=== PATIENT | male | born 1980 | race Caucasian/White ===

== ENCOUNTER 2018-11-26 11:54 | Emergency (ER) | payer BC ==
[~2018-11-26] VITALS: Ht 188 cm; Wt 81.6 kg
[2018-11-26 12:03] VITALS: BP 134/79
[2018-11-26] MEDS ORDERED: NKM (12:08)
--- NOTE | 2018-11-26 12:13 | NUR ---
ED Nurse Note: Pt walked in due to chemical exposure without applying mask x 4-5 hours 2 days ago. Pt used muriatic acid. Pt c/o headache, sorethroat and weakness. AAO x4 and ambulatory with no respiratory distress. Denies vomiting.
[2018-11-26] MEDS ORDERED: Ipratropium 0.02% Inh Soln 2.5ml UD HHN ONE (12:30)
[2018-11-26] MEDS ORDERED: Albuterol ud Inhalation HHN ONE (12:30)
--- NOTE | 2018-11-26 12:30 | NUR ---
ED Nurse Note: Called RT for breathing treatment.
[2018-11-26] MEDS ORDERED: ALBUTEROL SULF8.5 GM INH (12:48)
--- NOTE | 2018-11-26 12:48 | Emergency Room Report ---
History of Present Illness General Chief Complaint: Chemical Exposure Source: Patient Present Illness HPI 38-year-old male history of 20 pack years presents with sore throat, chest congestion x2 days, patient 2 days ago was exposed to Muriatic Acid Klean Strip 5 hours, and an open area cleaning the concrete, denies any chest pain, he feels a little congested has a sore throat, no aggravating or alleviating factors, and Tums have been constant, denies any shortness of breath dyspnea on exertion, no nausea no vomiting, he presents for evaluation Allergies: Coded Allergies: No Known Allergies (Unverified , 11/26/18) Patient History Past Medical History: see triage record Reviewed Nursing Documentation: PMH: Agreed; PSxH: Agreed Nursing Documentation-PMH Past Medical History: No Stated History Review of Systems All Other Systems: negative except mentioned in HPI Physical Exam Vital Signs Date Time Temp Pulse Resp B/P (MAP) Pulse Ox O2 Delivery O2 Flow Rate FiO2 11/26/18 12:03 98.6 88 16 134/79 (97) 95 Room Air Sp02 EP Interpretation: reviewed, normal General Appearance: well appearing, no apparent distress, alert Head: normocephalic, atraumatic Eyes: bilateral eye PERRL, bilateral eye EOMI ENT: uvula midline, moist mucus membranes Neck: supple, thyroid normal, supple/symm/no masses Respiratory: lungs clear, no respiratory distress, no retraction, no accessory muscle use Cardiovascular #1: normal peripheral pulses, regular rate, rhythm, no edema, no gallop, no murmur Gastrointestinal: non tender, soft, no guarding, no rebound Musculoskeletal: normal inspection Neurologic: alert, oriented x3 Psychiatric: mood/affect normal Skin: no rash, warm/dry Medical Decision Making Diagnostic Impression: Primary Impression: Chemical exposure ER Course Patient with a mild chemical exposure spoke with poison control [place] at 12: 37 PM, no acute interventions, supportive care Will provide patient with [facility] here, chest x-ray is negative disposition home with return precautions Chest X-Ray Diagnostic Results Chest X-Ray Diagnostic Results : Chest X-Ray Ordered: Yes # of Views/Limited/Complete: 1 View Indication: Shortness of Breath EP Interpretation: Yes Interpretation: no consolidation, no effusion, no pneumothorax, no acute cardiopulmonary disease Impression: No acute disease Electronically Signed by: Brian Mendoza Last Vital Signs Date Time Temp Pulse Resp B/P (MAP) Pulse Ox O2 Delivery O2 Flow Rate FiO2 11/26/18 12:12 76 20 Room Air 11/26/18 12:03 98.6 134/79 (97) 95 Disposition: HOME, SELF-CARE Condition: Stable Scripts Albuterol Sulfate* (ALBUTEROL SULFATE MDI*) 8.5 Gm Hfa.aer.ad 2 PUFF INH Q4H PRN for cough/wheezing, #1 EA 0 Refills Prov: Brian Mendoza MD 11/26/18 Referrals: [facility] Patient Instructions: Chemical Inhalation Injury Additional Instructions: The patient was provided with discharge instructions, notified to follow-up with a primary care doctor and or specialist in the next 24-48 hours, and to return to the ED if they have worsening of their symptoms. Please note that this report is being documented using DRAGON technology. This can lead to erroneous entry secondary to incorrect interpretation by the dictating instrument. Brian Mendoza MD Nov 26, 2018 12:48
[2018-11-26 12:55] VITALS: BP 128/80
--- NOTE | 2018-11-26 12:55 | NUR ---
ER DISCHARGE NOTE: Patient is cleared to be discharged per ERMD, pt is aox4, on room air, with stable vital signs. pt was given dc instructions, pt was able to verbalize understanding, pt id band removed. pt is able to ambulate with steady gait. pt took all belongings.
== END 2018-11-26 12:55 | disposition home or self-care (01) ==
LOC: EMR 12:35
DX: R09.89 Other specified symptoms and signs involving the circulatory and respiratory systems (principal); Z77.098 Contact with and (suspected) exposure to other hazardous, chiefly nonmedicinal, chemicals
CPT/HCPCS: 71045; 94640; 99284

== ENCOUNTER 2020-03-25 20:45 | Emergency (ER) | payer BC ==
[~2020-03-25] VITALS: Ht 188 cm; Wt 83.9 kg
[~2020-03-25 20:45] MED LIST: ALBUTEROL SULF8.5 GM INH; NKM
--- NOTE | 2020-03-25 21:20 | NUR ---
ED Nurse Note: Pt walked in from home, he is ambulatory with a steady gait. pt is axox4. States that he fell last night skateboarding on his left wrist. He has cap refill less than 3 seconds. He has shooting pain. He has limited movement of his left thumb. There is notable swelling but no discoloration.
[2020-03-25 21:24] VITALS: BP 134/77
--- NOTE | 2020-03-25 21:59 | Diagnostic Imaging Report ---
EXAM: XR Left Hand Complete, 3 or More Views CLINICAL HISTORY: PAIN TECHNIQUE: Frontal, lateral and oblique views of the left hand. COMPARISON: No relevant prior studies available. FINDINGS: Bones/joints: Linear lucency only visualized in the lateral view within the volar aspect of the base of the third middle phalanx could represent a small avulsion fracture. The fracture fragment does not appear to extend into the proximal interphalangeal joint. No dislocation. Soft tissues: Unremarkable. No radiopaque foreign body. IMPRESSION: Linear lucency within volar base of the third middle phalanx could represent a small avulsion fracture. The fracture fragment does not appear to extend into the proximal interphalangeal joint.
[2020-03-25] MEDS ORDERED: IBUPROFEN600 M1 ORAL (22:08)
[2020-03-25] MEDS ORDERED: NORCO 5-325 TA1 EAC1 ORAL (22:08)
--- NOTE | 2020-03-25 22:13 | Emergency Room Report ---
History of Present Illness General Chief Complaint: Upper Extremity Injury Source: Patient Present Illness HPI Disclaimer: Please note that this report is being documented using [employer] technology. This can lead to erroneous entry secondary to incorrect interpretation by the dictating instrument. HPI: 40-year-old male presents with left thumb pain. Last night he was skateboarding and fell landing on his left thumb. Complains of 10 out of 10 pain in left thumb worse with movement. He denies any other injuries. No head or neck trauma. He denies any medical history. Allergies: Coded Allergies: No Known Allergies (Unverified , 11/26/18) COVID-19 Screening Contact w/high risk pt: No Experienced COVID-19 symptoms?: No COVID-19 Testing performed PROVIDER RELATIONS REPRESENTATIVE: No COVID-19 Screening: Negative COVID-19 COVID-19 Testing Source: [facility] Patient History Reviewed Nursing Documentation: PMH: Agreed; PSxH: Agreed Review of Systems All Other Systems: negative except mentioned in HPI Physical Exam Vital Signs Date Time Temp Pulse Resp B/P (MAP) Pulse Ox O2 Delivery O2 Flow Rate FiO2 03/25/20 21:07 98.1 85 20 135/78 (97) 98 Room Air Sp02 EP Interpretation: reviewed, normal General Appearance: well appearing, no apparent distress Head: normocephalic, atraumatic Eyes: bilateral eye PERRL, bilateral eye EOMI ENT: hearing grossly normal, moist mucus membranes Neck: full range of motion, supple Respiratory: lungs clear, normal breath sounds, no rhonchi, no respiratory distress, no retraction, no wheezing Cardiovascular #1: normal peripheral pulses, regular rate, rhythm, no murmur Gastrointestinal: non tender, soft, non-distended, no guarding Musculoskeletal: other - Left thumb tender to palpation along proximal phalanx, no snuffbox tenderness, decreased flexion of the thumb, sensation intact. Neurologic: alert, oriented x3, no focal defects Skin: normal color, warm/dry Medical Decision Making Diagnostic Impression: Primary Impression: Left thumb sprain ER Course Differential diagnosis included but not limited to sprain, fracture, contusion, tendon injury to name a few exam patient was tender to palpation with mild decreased range of motion but no obvious deformity. X-ray completed and showed no acute fracture of the thumb or dislocation. Patient was placed in a thumb spica splint. Was given pain control. Will be discharged with pain control, copies of his imaging and close follow-up with his primary care doctor and orthopedics. Other X-Ray Diagnostic Results Other X-Ray Diagnostic Results : X-Ray ordered: Left hand # of Views/Limited Vs Complete: 3 View Indication: Pain Interpretation: no dislocation, no fractures Impression: No acute disease Electronically Signed by: Uday Cruz MD Last Vital Signs Date Time Temp Pulse Resp B/P (MAP) Pulse Ox O2 Delivery O2 Flow Rate FiO2 03/25/20 21:24 98.2 89 20 134/77 98 Room Air Disposition: HOME, SELF-CARE Condition: Stable Scripts Hydrocodone Bit/Acetaminophen 5-325* (NORCO 5-325 TABLET*) 1 Each Tablet 1 TAB ORAL Q6H PRN for FOR PAIN, #10 TAB 0 Refills Prov: Uday Cruz M.D. 03/25/20 Ibuprofen* (MOTRIN*) 600 Mg Tablet 600 MG ORAL Q6H PRN for For Pain, #30 TAB 0 Refills Prov: Uday Cruz M.D. 03/25/20 Patient Instructions: Thumb Sprain Additional Instructions: Patient is instructed to follow-up with her primary care doctor, primary care clinic or critical access hospital clinic in 1 to 2 days. Patient instructed to return for any worsening symptoms or concerns. You will need to follow-up with your primary doctor and orthopedics. Uday Cruz M.D. Mar 25, 2020 22:13
[2020-03-25] MEDS ORDERED: HYDROcodone/Acetamin 5/325 tab ORAL ONE (22:15)
[2020-03-25 22:17] VITALS: BP 132/85
--- NOTE | 2020-03-25 22:19 | NUR ---
ER DISCHARGE NOTE: Patient is cleared to be discharged per ERMD, pt is aox4, on room air, with stable vital signs. pt was given dc and prescription instructions, pt was able to verbalize understanding, pt id band removed. pt is able to ambulate with steady gait. pt took all belongings. Pt took pain medication right before he was discharged. he states that he has to leave soon.
== END 2020-03-25 22:19 | disposition home or self-care (01) ==
LOC: EMR 21:10
DX: S63.602A Unspecified sprain of left thumb, initial encounter (principal); V00.131A Fall from skateboard, initial encounter; Y93.I9 Activity, other involving external motion; Y92.9 Unspecified place or not applicable
CPT/HCPCS: 29125; 99283